=== PATIENT | female | born 1940 | race Caucasian/White ===

== ENCOUNTER 2023-12-30 10:49 | Day surgery (SDC) | payer OTHER, MEDICARE ==
[2023-12-27 14:34] VITALS: BMI 21.7
[2023-12-30] MEDS ORDERED: PROPOFOL 80 ML ONE (11:01)
[2023-12-30] MEDS ORDERED: DEXAMETHASONE SOD PHOSPHATE 4 MG/1 ML VIAL ONE (11:34)
[2023-12-30] MEDS ORDERED: ONDANSETRON 4 MG/2 ML VIAL ONE (11:34)
[2023-12-30] MEDS ORDERED: ceFAZolin SODIUM 1 GM VIAL ONE (11:34)
[2023-12-30] MEDS ORDERED: FAMOTIDINE 20 MG/50 ML IVPB 20 MG/50 ML MG IVPB ONE (11:44)
[2023-12-30] MEDS ORDERED: ACETAMINOPHEN INJECTION 100 ML ONE (11:45)
[2023-12-30] MEDS: BUPIVACAINE 0.25% /EPI 1:200,000 10 ML VIAL NR ONE ×3 (12:48→13:58)
[2023-12-30] MEDS ORDERED: ONDANSETRON 4 MG/2 ML VIAL IVPUSH PRN (14:22)
[2023-12-30] MEDS ORDERED: LACTATED RINGERS SOLUTION 1,000 ML IV SCH (14:30)
[2023-12-30] MEDS ORDERED: FENTANYL CITRATE/PF 50 MCG/ML VIAL ONE (14:42)
[2023-12-30] MEDS ORDERED: oxyCODONE HCL 5 MG TABLET PO PRN (15:51)
[2023-12-30 17:30] VITALS: BP 135/74; PULSE 88; RESP 16; TEMP 98.2
== END 2023-12-30 16:40 | disposition home or self-care (01) ==
LOC: FASU 10:49
PROVIDERS: ATTEND Plastic Surgery
PROC: 0HRV0JZ Replacement of Bilateral Breast with Synthetic Substitute, Open Approach (ICD-10-PCS; 2023-12-30)
PROC: 0HPU0JZ Removal of Synthetic Substitute from Left Breast, Open Approach (ICD-10-PCS; principal; 2023-12-30 12:47)
PROC: 0HPT0JZ Removal of Synthetic Substitute from Right Breast, Open Approach (ICD-10-PCS; 2023-12-30 12:47)
DX: T85.44XA Capsular contracture of breast implant, initial encounter (principal); Y82.8 Other medical devices associated with adverse incidents; Y92.9 Unspecified place or not applicable; N65.0 Deformity of reconstructed breast
CPT/HCPCS: 19342; 19371; L8600; 88300-TC; 88304-TC; 94760; C1789; J0131